=== PATIENT | female | born 1975 | race Caucasian/White ===

== ENCOUNTER 2017-08-24 11:16 | Emergency (ER) | payer OTHER ==
[~2017-08-24] VITALS: Ht 162.6 cm; Wt 84.5 kg
[2017-08-24 13:23] VITALS: BP 140/80
== END 2017-08-24 13:24 | disposition home or self-care (01) ==
LOC: EME 11:16
PROC: 3E0234Z Introduction of Serum, Toxoid and Vaccine into Muscle, Percutaneous Approach (ICD-10-PCS; principal; 2017-08-24)
DX: Z20.3 Contact with and (suspected) exposure to rabies (principal); S41.151A Open bite of right upper arm, initial encounter; Z23 Encounter for immunization
CPT/HCPCS: 99281; 99284